=== PATIENT | female | born 1950 | race African-American/Black ===

== ENCOUNTER 2017-06-15 02:31 | Emergency (ER) | payer MEDICARE, MEDICAID ==
[~2017-06-15] VITALS: Ht 167.6 cm; Wt 79.8 kg
[2017-06-15] MEDS ORDERED: Lidocaine 2% 20mg/ml/Epi 0.005mg/ml 20ml vial ONE (03:03)
[2017-06-15] MEDS ORDERED: Lidocaine 1% MPF 10mg/ml 5ml ONE (03:04)
[2017-06-15 03:15] VITALS: BP 121/86
[2017-06-15] MEDS ORDERED: Cephalexin 500mg cap ORAL ONE (03:30)
[2017-06-15] MEDS ORDERED: KEFLEX500 MG ORAL (04:05)
[2017-06-15] MEDS ORDERED: IBUPROFEN600 MG ORAL (04:05)
[2017-06-15] MEDS ORDERED: Lidocaine 2% 20mg/ml/Epi 0.005mg/ml 20ml vial INJ ONE (04:15)
[2017-06-15 04:22] VITALS: BP 125/81
--- NOTE | 2017-06-17 09:30 | Emergency Room Report ---
History of Present Illness General Chief Complaint: Laceration Source: Patient, EMS Present Illness HPI Patient presents by paramedics for a stab type injury laceration to the left hand Patient reports that she was cleaning out her candles when the knife slipped and punctured her left hand Patient had increased bleeding was not able to control the blood And presents for further eval denies any wrist pain denies any elbow pain Denies any lightheadedness or dizziness patient reports previous blood transfusion Pain is 6/10 localized to the left hand Patient reports being up-to-date with immunizations Allergies: Coded Allergies: CODEINE (Unverified Allergy, Unknown, 06/15/17) PENICILLINS (Unverified Allergy, Unknown, 06/15/17) Patient History Past Medical History: see triage record Pertinent Family History: none Last Menstrual Period: NA Now: No Reviewed Nursing Documentation: PMH: Agreed, PSxH: Agreed Nursing Documentation-PMH Hx Hypertension: Yes Hx Diabetes: Yes Review of Systems All Other Systems: negative except mentioned in HPI Physical Exam Vital Signs Date Time Temp Pulse Resp B/P (MAP) Pulse Ox O2 Delivery O2 Flow Rate FiO2 06/15/17 02:29 99.0 79 18 121/86 96 Room Air Sp02 EP Interpretation: reviewed, normal General Appearance: well appearing, no apparent distress Head: normocephalic, atraumatic Eyes: bilateral eye PERRL, bilateral eye EOMI ENT: normal pharynx, no angioedema Neck: full range of motion, supple Respiratory: lungs clear Cardiovascular #1: regular rate, rhythm Gastrointestinal: non tender, soft Genitourinary: no CVA tenderness Musculoskeletal: other - Posterior wound into the base of the thumb, lateral mid thenar eminence patient however is able to make a, comes up at approximate all digits Neurologic: alert, oriented x3, responsive, sustainability officer III-XII nml as tested, motor strength/tone normal Skin: other - 1 cm puncture, laceration wound left hand as noted above Lymphatic: no adenopathy Procedures Laceration/Wound Repair Laceration/Wound Repair : Consent: Verbal Wound Location: upper extremity Wound's Depth, Shape: linear Wound Length (cm): 1 Wound Explored: clean Irrigated w/ Saline (ccs): 250 Betadine Prep?: Yes Anesthesia: Lidocaine w/ Epi Volume Anesthetic (ccs): 4 Wound Debrided: moderate Wound Repaired With: sutures Suture Size/Type: 4:0 Number of Sutures: 5 Layer Closure?: No Splint Applied?: No Patient Tolerated: Well Complications: None Medical Decision Making Diagnostic Impression: Primary Impression: Laceration Additional Impression: complex laceration ER Course Given the patient's history and presentation Patient had laceration repair as noted in the appropriate section of the notes Patient tolerated the procedure well Was observed further in the emergency room and remains hemodynamically stable Patient was provided with oral antibiotics given the puncture-type pathology of the injury and is stable for close followup Last Vital Signs Date Time Temp Pulse Resp B/P (MAP) Pulse Ox O2 Delivery O2 Flow Rate FiO2 06/15/17 04:22 74 18 125/81 98 Room Air 06/15/17 03:15 99.0 Status: improved Disposition: HOME, SELF-CARE Condition: Improved Scripts Ibuprofen* (MOTRIN*) 600 Mg Tablet 600 MG ORAL Q8H Y for For Pain, #30 TAB 0 Refills Prov: DEWAYNE REYES D.O. 06/15/17 Cephalexin* (KEFLEX*) 500 Mg Capsule 500 MG ORAL Q6H, #28 CAP 0 Refills Prov: DEWAYNE REYES D.O. 06/15/17 Referrals: NON PHYSICIAN (PCP) Patient Instructions: Laceration Care, Adult Additional Instructions: Patient is provided with the discharge instructions notified to follow up with primary doctor in the next 2-3 days otherwise return to the er with any worsening symptoms. Please note that this report is being documented using DRAGON technology. This can lead to erroneous entry secondary to incorrect interpretation by the dictating instrument. DEWAYNE REYES D.O. Jun 17, 2017 09:30
== END 2017-06-15 04:20 | disposition home or self-care (01) ==
LOC: EDBD 02:31 → EMR 02:54
DX: S61.412A Laceration without foreign body of left hand, initial encounter (principal); W26.0XXA Contact with knife, initial encounter; Y93.E9 Activity, other interior property and clothing maintenance; Z88.0 Allergy status to penicillin; Z88.5 Allergy status to narcotic agent
CPT/HCPCS: 99284